=== PATIENT | male | born 1975 | race Hispanic/Latino ===

== ENCOUNTER 2022-12-26 14:05 | Emergency (ER) | payer OTHER ==
[~2022-12-26] VITALS: Ht 167.6 cm; Wt 95.3 kg
[2022-12-26] MEDS ORDERED: KETOROLAC 60 MG VIAL (30MG/ML) IM ONE (16:00)
[2022-12-26] MEDS ORDERED: IBUP-2070 PO (16:25)
[2022-12-26] MEDS ORDERED: CYCL5TAB PO (16:25)
[2022-12-26 16:30] VITALS: BP 135/86
== END 2022-12-26 17:05 | disposition home or self-care (01) ==
LOC: EDH 14:05
DX: T14.8XXA Other injury of unspecified body region, initial encounter (principal); M25.512 Pain in left shoulder; I10 Essential (primary) hypertension; V89.2XXA Person injured in unspecified motor-vehicle accident, traffic, initial encounter; Y93.I9 Activity, other involving external motion; Y92.488 Other paved roadways as the place of occurrence of the external cause; Y99.8 Other external cause status
CPT/HCPCS: 99285; 72131; 96372; J1885